=== PATIENT | male | born 1995 | race Two or more races ===

== ENCOUNTER 2017-03-03 20:03 | Emergency (ER) | payer SELFPAY ==
[~2017-03-03] VITALS: Ht 177.8 cm; Wt 72.6 kg
[2017-03-03 20:17] VITALS: BP 148/82
[2017-03-03] MEDS ORDERED: MORPHINE SULFATE 4 MG/ML SYRG IV ONE (20:45)
[2017-03-03] MEDS ORDERED: ONDANSETRON HCL 4 MG/2 ML VIAL IV ONE (20:45)
== END 2017-03-03 23:09 | disposition home or self-care (01) ==
LOC: ER 20:13
DX: S43.004A Unspecified dislocation of right shoulder joint, initial encounter (principal); X50.0XXA Overexertion from strenuous movement or load, initial encounter; Y93.89 Activity, other specified; Y99.0 Civilian activity done for income or pay; Y92.69 Other specified industrial and construction area as the place of occurrence of the external cause
CPT/HCPCS: 23650; 73020; 96374; 96375; 99152; 99284; J2270; J2405